=== PATIENT | male | born 1955 | race Caucasian/White ===

== ENCOUNTER 2025-03-14 08:05 | Outpatient (OUT) | payer MEDICARE, OTHER, SELFPAY ==
--- OUTSIDE RECORDS SUMMARY | 2025-03-13 23:59 | XMS_ITS | Continuity of Care Document ---
Author Organization [facility] Address [address] [address] Care Team Providers Care Hook Tender Name Role Phone FARIDA ROSALINO [place] Primary Care Physician [phone] Encounter FT_AMBFIN [id number] Date(s): 03/13/25 - 03/13/25 [facility] [address] [place] [address]- Encounter Diagnosis Right flank pain(Discharge Diagnosis) - 03/13/25 Family history of prostate cancer in father(Discharge Diagnosis) - 03/13/25 Screening PSA (prostate specific antigen)(Discharge Diagnosis) - 03/13/25 Kidney stone(Discharge Diagnosis) - 03/13/25 Discharge Disposition: Home (Routine DC) Attending Physician: Romie ORTIZ MD Encounter Type: Clinic Allergies, Adverse Reactions, Alerts No Known Medication Allergies Immunizations Given and Recorded Vaccine Date Status Refusal Reason pneumococcal 20-valent conjugate vaccine 10/03/24 Recorded influenza virus vaccine, inactivated 07/30/24 Eb rded influenza virus vaccine, inactivated 07/14/23 Eb rded influenza virus vaccine, inactivated 07/06/22 Eb rded influenza virus vaccine, inactivated 07/16/21 Eb rded influenza virus vaccine, inactivated 06/2020 Eb rded influenza virus vaccine, inactivated 06/03/20 Eb rded SARS-CoV-2 (COVID-19) [id number] 1 08/19/22 Recorded SARS-CoV-2 (COVID-19) mRNA-1273 vaccine 2 04/01/22 Recorded SARS-CoV-2 (COVID-19) mRNA-1273 vaccine 3 07/16/21 Recorded SARS-CoV-2 (COVID-19) mRNA-1273 vaccine 10/23/20 R ecorded SARS-CoV-2 (COVID-19) mRNA-1273 vaccine 09/25/20 R ecorded zoster vaccine live 03/01/17 Recorded yellow fever vaccine 09/02/04 Recorded typhoid vaccine, inactivated 09/02/04 Recorded hepatitis A-hepatitis B vaccine 09/02/04 Recorded tetanus-diphtheria toxoids 08/25/99 Recorded Td(adult) unspecified formulation 07/22/99 Recorde d Hep A, unspecified formulation 07/22/99 Recorded hepatitis B adult vaccine 06/06/97 Recorded hepatitis B adult vaccine 01/08/97 Recorded hepatitis B adult vaccine 11/27/96 Recorded 1Result Comment: 2025-03-05: [id number] 2Result Comment: 2025-03-05: [id number] 3Result Comment: 2025-03-05: TPV65 Medications latanoprost Opth 0.005% Leeanne Refill(s) 0 Start Date: 03/13/25 Status: Ordered Repeat number: 1 Problem List Condition Confirmation Course Effective Dates Status Health St atus Informant BMI 27.0-27.9,adult Confirmed Active Family history of prostate cancer in father Confirmed Active Glaucoma Confirmed Active Headache Confirmed Active Kidney stone Confirmed Active Microscopic hematuria Confirmed Active Screening PSA (prostate specific antigen) Confirmed Active Right flank pain Confirmed Active Tobacco use Confirmed Active patient Ureteral stone Confirmed Active Procedures Procedure Date Related Diagnosis Body Site Status Colonoscopy Completed Social History Social History Type Response Smoking Status Cigars or pipes but not daily within last 30 days;Never; Type: Cigars entered on: 03/13/25 Sex Male Sex Representation Male (finding) Hospital Discharge Instructions Patient Education 03/13/2025 12:05:57 Laser Therapy for Kidney Stones, Care After Laser Therapy for Kidney Stones, Care After After laser therapy for kidney stones, it is common to have: ??? Pain. ??? A burning feeling when you pee (urinate). ??? Small amounts of blood in your pee (urine). ??? A need to pee a lot. ??? Parts of the kidney stone in your pee. ??? Mild discomfort in your back when you pee. You may have this if you had a small mesh tube (stent) placed during the procedure. Follow these instructions at home: Medicines ??? Take ochr-utf-kvdkzhr and prescription medicines only as told by your health care provider. ??? If you were prescribed antibiotics, take them as told by your provider. Do not stop using the antibiotic even if you start to feel better. ??? Ask your provider if the medicine prescribed to you: ??? Requires you to avoid driving or using machinery. ??? Can cause constipation. You may need to take these actions to prevent or treat constipation: ??? Drink enough fluid to keep your pee pale yellow. ??? Take sftf-ppe-rcqqbzv or prescription medicines. ??? Eat foods that are high in fiber, such as beans, whole grains, and fresh fruits and vegetables. ??? Limit foods that are high in fat and processed sugars, such as fried or sweet foods. Activity ??? If you were given a sedative during the procedure, it can affect you for several hours. Do not drive or operate machinery until your provider says that it is safe. ??? Return to your normal activities as told by your provider. Ask your provider what activities are safe for you. General instructions ??? Your provider may recommend that you drink a lot of water for a few hours after your procedure.If you have heart or kidney disease, ask your provider how much you should drink. ??? You may be asked to strain your pee to collect any stone pieces that you pass. Your provider may have these pieces tested. ??? Do not take baths, swim, or use a hot tub until your provider approves. Ask your provider if you may take warm baths to soothe the burning. ??? Keep all follow-up visits. If you have a stent, you will need to go back to your provider to have it removed. Your provider may give you more instructions. Make sure you know what you can and cannot do. Contact a health care provider if: ??? You have pain or a burning feeling that lasts for more than 2 days. ??? You feel nauseous. ??? You vomit more and more often. ??? You have trouble peeing. ??? You have pain that gets worse or does not get better with medicine. ??? You have a fever or shaking chills. Get help right away if: ??? You cannot pee, even when your bladder feels full. ??? You faint. ??? You have chest pain, shortness of breath, or cough up blood. ??? You have: ??? Bright red blood or blood clots in your pee. ??? Severe pain or discomfort. ??? Pain in your abdomen. ??? Swelling in your legs. These symptoms may be an emergency. Get help right away. Call 911. ??? Do not wait to see if the symptoms will go away. ??? Do not drive yourself to the hospital. This information is not intended to replace advice given to you by your health care provider. Make sure you discuss any questions you have with your health care provider. Document Revised: 05/06/2023 Document Reviewed: 05/06/2023 Degreed Patient Education ?? 2023 [employer]. 03/13/2025 11:58:03 Laser Therapy for Kidney Stones Laser Therapy for Kidney Stones Laser therapy for kidney stones is a procedure to break up rock-like masses that form inside the kidneys (kidney stones). It is done using a device that beams a strong light (laser) on the kidney stones. This breaks the stones up into small pieces. These small pieces may leave your body when you pee (urinate) or may be taken out during the procedure. You may need laser therapy if you have kidney stones that are painful or that are stopping you frombeing able to pee. Tell a health care provider about: ??? Any allergies you have. ??? All medicines you are taking, including vitamins, herbs, eye drops, creams, and xyhb-adz-ejepmgs medicines. ??? Any problems you or family members have had with anesthesia. ??? Any bleeding problems you have. ??? Any surgeries you have had. ??? Any medical conditions you have. ??? Whether you are or may be . What are the risks? Your health care provider will talk with you about risks. These may include: ??? Infection. ??? Bleeding. ??? Allergic reactions to medicines. ??? Damage to: ??? The part of your body that drains pee (urine) from the bladder (urethra). ??? The bladder. ??? The tube that connects the bladder to the kidneys (ureter). ??? Urinary tract infection (UTI). ??? Urethral stricture. This is when the urethra is narrowed by scarring. ??? Trouble peeing. ??? Blockage of the kidney. This may be caused by a piece of kidney stone. What happens before the procedure? When to stop eating and drinking Follow instructions from your provider about what you may eat and drink. These may include: ??? 8 hours before the procedure ??? Stop eating most foods. Do not eat meat, fried foods, or fatty foods. ??? Eat only light foods, such as toast or crackers. ??? All liquids are okay except energy drinks and alcohol. ??? 6 hours before the procedure ??? Stop eating. ??? Drink only clear liquids, such as water, clear fruit juice, black coffee, plain tea, and sportsdrinks. ??? Do not drink energy drinks or alcohol. ??? 2 hours before the procedure ??? Stop drinking all liquids. ??? You may be allowed to take medicines with small sips of water. ??? If you do not follow your provider's instructions, your procedure may be delayed or canceled. Medicines ??? Ask your provider about: ??? Changing or stopping your regular medicines. These include any diabetes medicines or blood thinners you take. ??? Taking medicines such as aspirin and ibuprofen. These medicines can thin your blood. Do not take them unless your provider tells you to. ??? Taking izvq-nfo-xhcxdiy medicines, vitamins, herbs, and supplements. Tests ??? You may have a physical exam before the procedure. You may also have tests done. These may include: ??? Imaging tests. ??? Blood or pee tests. Surgery safety ??? Ask your provider: ??? How your surgery site will be marked. ??? What steps will be taken to help prevent infection. These steps may include: ??? Removing hair at the surgery site. ??? Washing skin with a soap that kills germs. ??? Taking antibiotics. General instructions ??? Do not use any products that contain nicotine or tobacco for at least 4 weeks before the procedure. These products include cigarettes, chewing tobacco, and vaping devices, such as e-cigarettes. If you need help quitting, ask your provider. ??? If you will be going home right after the procedure, plan to have a responsible adult: ??? Take you home from the hospital or clinic. You will not be allowed to drive. ??? Care for you for the time you are told. What happens during the procedure? An IV will be inserted into one of your veins. ??? You will be given: ??? A sedative. This helps you relax. ??? Anesthesia. This keeps you from feeling pain. It will make you fall asleep for surgery. ??? A tool with a camera on the end (ureteroscope) will be put into your urethra. It will be moved through your bladder to your kidney. It will send pictures to a screen in the operating room. This will show what parts of your kidney need to be treated. ??? A tube will be put through the ureteroscope. It will be moved into your kidney. ??? The laser device will be put into your kidney through the tube. The laser will be used to breakup the kidney stones. ??? A tool with a tiny wire basket may be put through the tube into your kidney. This can help remove the small pieces of the kidney stone. ??? A small mesh tube (stent) may be placed to allow your kidney to drain. ??? The tube and ureteroscope will be taken out at the end of the surgery. The procedure may vary among providers and hospitals. What happens after the procedure? Your blood pressure, heart rate, breathing rate, and blood oxygen level will be monitored untilyou leave the hospital or clinic. ??? If you had a stent placed, it may have a string that will be secured to your skin. This helps your provider remove the stent. ??? You may be given a strainer to collect any stone pieces that you pass in your pee. Your provider may have these tested. This information is not intended to replace advice given to you by your health care provider. Make sure you discuss any questions you have with your health care provider. Document Revised: 05/06/2023 Document Reviewed: 05/06/2023 Elsevier Patient Education ?? 2023 [employer]. Follow Up Care 02/07/2025 10:54:50 With:ANGEL OCHOA, Romie Patton, URL Address: [facility] [address] [place] [address]- [phone] When: Unknown Patient Care team information Care Team Personnel Name: ROSALINO IQBAL DO Position: Powerchart Outreach Office Staff Search Member Role: Primary Care Physician Address: [address] [place], [place] [address] Telecom: Care Team Related Persons Name: Mary JOHNSON Name: MARY JOHNSON Insurance Providers Guarantor name: Health Plan Information #: 1 Payer: NA Payer Identifier: [id number] Member Number: [id number] Group Number: [id number] Subscriber Identifier: [id number] Relationship to Subscriber: Self Coverage Type: MEDICARE Coverage Verification Date: 25 Telecom: NA Address: Health Plan Information #: 2 Payer: NA Payer Identifier: [id number] Member Number: [id number] Group Number: [id number] Subscriber Identifier: [id number] Relationship to Subscriber: Self Coverage Type: PRIVATE HEALTH INSURANCE Coverage Verification Date: 25 Telecom: Address:
--- NOTE | 2025-03-14 08:14 | ECG_ITS ---
[facility] Test Date: 2025-03-14 Pat Name: BERENICE JOHNSON Department: Room: - Gender: Male Technical Service Rep: : 1955 Requested By: GABY ORTIZ Order Number: [id number] Morena MD: ESTEPHANIE WEISS M.D. Measurements Intervals [place] Rate: 50 P: 34 VA: 166 QRS: 33 QRSD: 93 T: 40 QT: 415 QTc: 379 Interpretive Statements SINUS BRADYCARDIA Otherwise normal ECG No previous ECG available for comparison Electronically Signed On 03-14-2025 19:49:23 EDT by ESTEPHANIE WEISS M.D.
--- OUTSIDE RECORDS SUMMARY | 2025-03-14 08:14 | XMS_ITS | Clinical Summary ---
Author Organization [facility] Address [address] [place] [address] Care Team Providers Care County Agricultural Agent Name Role Phone Fuad Kelly MD Primary Care Provider [phone] Allergies No known active allergies Medications latanoprost (Xalatan) 0.005 % ophthalmic solution INSTILL 1 DROP IN EACH EYE AT BEDTIME 12/18/2024 Active Active Problems Problem Noted Date Diagnosed Date Primary open angle glaucoma (POAG) of both eyes, mild stage 02/13/2025 Epiretinal membrane (ERM) of left eye 02/13/2025 Dry eyes 02/13/2025 Blepharitis of upper and lower eyelids of both e yes 02/13/2025 Age-related nuclear cataract of both eyes 2024 Encounters Date Type Department Care Team Description 02/13/2025 11:15 AM EDT Office Visit [facility] [address] [place] [phone] Vic Sharp, Primary open angle glaucoma (POAG) of both eyes, mild stage (Primary Dx); Epiretinal membrane (ERM) of left eye; Age-related nuclear cataract of both eyes; Dry eyes; Blepharitis of upper and lower eyelids of both eyes, unspecified type 02/13/2025 Bamboo flowsheet [facility] [address] [place] [id number] Vic Sharp DO 02/13/2025 Travel 02/06/2025 Travel from Last 3 Months Family History Medical History Relation Name Comments Cancer Father Jluis Glaucoma Father Jluis Cataracts Mother Camilla Macular degeneration Mother Camilla Glaucoma Sister Rosalina Relation Name Status Comments Father Jluis Alive Mother Camilla Alive Sister Rosalina Alive Social History Tobacco Use Types Packs/Day Years Used Date Smoking Tobacco: Never Smokeless Tobacco: Never Tobacco Cessation:Counseling Given: Not Answered Comments:Occasionally a cigar. No inhale Sex and Gender Information Value Date Recorded Sex Assigned at Not on file Legal Sex Male 11:09 PM EDT Gender Identity Not on file Sexual Orientation Not on file Last Filed Vital Signs Vital Sign Reading Time Taken Comments Blood Pressure - - Pulse - - Temperature - - Respiratory Rate - - Oxygen Saturation - - Inhaled Oxygen Concentration - - Weight 86.2 kg (190 lb) 03/13/2021 12:00 PM EDT Height 185.4 cm (6' 1 ) 03/13/2021 12:00 PM EDT Body Mass Index 25.07 03/13/2021 12:00 PM EDT Plan of Treatment Upcoming Encounters Date Type Department Care Team (Late st Contact Info) Description 08/20/2025 8:15 AM EST Office Visit [facility] [address] [place] [phone] Vic Sharp, [address] [place] [address] Health Maintenance Due Date Last Done Comments CT Colonography 1955 Colonoscopy 1955 Colorectal Cancer Screening 1955 FIT-DNA 1955 FIT 1954 FOBT 1955 Sigmoidoscopy 1955 Influenza Vaccine Completed 07/30/2024, , 07/06/2022, Additional history exists Pneumococcal Vaccine: 65+ Years Completed Insurance MEDICARE Care Teams County Agricultural Agent Relationship Specialty Start Date End Date Fuad Kelly MD [address] [place] [address] [address] PCP - General Family Medicine 02/13/25
--- NOTE | 2025-03-14 08:46 | PM.PRESUREVA ---
History of Present Illness History of Present Illness Chief complaint: right kidney stone Narrative: Patient presents for presurgical testing. Please see HPI from Dr. Ortiz dated March 13, 2025. Review of Systems ROS Narrative Please see ROS from Dr. Ortiz dated March 13, 2025. [facility] Medical History (Updated 03/14/25 @ 08:43 by Soledad Mccoy NP) Elevated blood pressure reading without diagnosis of hypertension ?R03.0 - Elevated blood-pressure reading, without diagnosis of hypertension (ICD-10) DDD (degenerative disc disease) Migraine ?G43.909 - Migraine, unspecified, not intractable, without status migrainosus (ICD-10) Headache ?R51.9 - Headache, unspecified (ICD-10) Hematuria ?R31.9 - Hematuria, unspecified (ICD-10) Ureteral stone ?N20.1 - Calculus of ureter (ICD-10) Flank pain ?R10.9 - Unspecified abdominal pain (ICD-10) Glaucoma ?H40.9 - Unspecified glaucoma (ICD-10) Kidney stones ?N20.0 - Calculus of kidney (ICD-10) Surgical History (Updated 03/14/25 @ 08:43 by Soledad Mccoy NP) Status post ORIF of fracture of ankle ?Z98.890 - Other specified postprocedural states (ICD-10) ?Z87.81 - Personal history of (healed) traumatic fracture (ICD-10) History of colonoscopy ?Z98.890 - Other specified postprocedural states (ICD-10) Family History (Updated 03/14/25 @ 08:30 by Soledad Mccoy NP) Other Family history of hypertension Family history of prostate cancer Social History (Updated 03/14/25 @ 08:25 by Soledad Mccoy NP) Within the past year, how often did you have a drink containing alcohol: monthly or less Smoking status: Never smoker Non-prescribed substance use: denies use Previous occupational history: Retired Highest level of school completed/degree received: Professional degree (MD, BOBBY, DVM, DDS) Meds Home Medications and Allergies Home Medications ?Medication ?Instructions ?Recorded ?Confirmed ?Type glucosamine-chondroitin 250 mg-200 2 tab PO DAILY 03/14/25 03/14/25 History mg tablet latanoprost 0.005 % eye drops 1 drp ophthalmic (eye) QPM 06/26/25 06/26/25 History multivitamin (Daily Multi-Vitamin 1 tab PO DAILY 03/14/25 03/14/25 History tablet) Allergies Allergy/AdvReac Type Severity Reaction Status Date / Time No Known Drug Allergies Allergy Verified 03/14/25 08:23 Exam Narrative Exam Narrative: Constitutional: Awake, alert, comfortable, well-appearing, nontoxic, interactive, vital signs as charted Head: Normocephalic, atraumatic Neck: Supple, normal appearance, normal range of motion, no meningeal signs, no lymphadenopathy Respiratory: No respiratory distress, breath sounds clear Cardiovascular: Regular rate and rhythm, strong and regular heart tones Abdomen: Nontender, normal bowel sounds, soft, no CVA tenderness Musculoskeletal: Normal gait, no swelling or edema Skin: No rashes or induration, no lesions, only visible skin inspected Neuro: No neurological deficits, normal sensation Psychiatric: Oriented ?3, normal affect Assessment and Plan Assessment and Plan (1) Flank pain: (2) Kidney stones: (3) Hematuria: Plan Right ESWL scheduled with Dr. Ortiz March 19, 2025.
[2025-03-14 09:08] LABS: Basophils Percent Auto 0.4 % (0.2-2.0); Eosinophils Absolute Auto 0.1 10^3/uL (0.0-0.7); Eosinophils Percent Auto 1.5 % (0.9-7.0); Hematocrit 42.7 % (42.0-54.0); Immature Granulocytes Abs Auto 0.01 10^3/uL (0.00-0.03); Immature Granulocytes Pct Auto 0.2 % (0.0-0.5); Lymphocytes Absolute Auto 1.1 10^3/uL (1.2-3.8); Lymphocytes Percent Auto 23.7 % (20.5-60.0); Mean Corpuscular HGB Conc 35.1 g/dL (29.9-35.2); Mean Corpuscular Hemoglobin 31.3 pg (25.9-34.0); Mean Corpuscular Volume 89.1 fL (80.0-94.0); Mean Platelet Volume 10.2 fL (9.5-13.5); Monocytes Absolute Auto 0.5 10^3/uL (0.3-0.8); Monocytes Percent Auto 9.9 % (1.7-12.0); Neutrophils Absolute Auto 3.1 10^3/uL (1.4-6.5); Neutrophils Percent Auto 64.3 % (43.0-75.0); Platelet Count 203 10^3/uL (150-450); Red Blood Count 4.79 10^6/uL (4.70-6.10); Red Cell Distribution Width 12.9 % (11.0-15.0); White Blood Count 4.8 10^3/uL (4.0-11.0)
[2025-03-14 09:28] LABS: INR 0.99; Partial Thromboplastin Time 26.3 sec (22.3-36.2); Prothrombin Time 10.5 sec (9.0-11.6)
[2025-03-14 10:23] LABS: Anion Gap 13.1; BUN Creatinine Ratio 16.9; Calcium 9.4 mg/dL (8.5-10.1); Chloride 105 mmol/L (98-107); Estimated GFR (African America >60 (>=60 mL/min/1.73m^2); Estimated GFR (Non-African Ame >60 (>=60 mL/min/1.73m^2); Glucose 107 mg/dL (74-106); Potassium 4.1 mmol/L (3.5-5.1); Sodium 139 mmol/L (136-145)
== END 2025-03-14 08:06 | disposition home or self-care (01) ==
PROVIDERS: PCP Family Medicine; Visit Provider Urology
DX: Z01.810 Encounter for preprocedural cardiovascular examination (principal); Z01.812 Encounter for preprocedural laboratory examination; Z01.818 Encounter for other preprocedural examination; N20.0 Calculus of kidney; R31.9 Hematuria, unspecified
CPT/HCPCS: 80048; 85025; 85610; 85730; 93005; G0463

== ENCOUNTER 2025-03-19 10:38 | Day surgery (SDC) | payer MEDICARE, OTHER, SELFPAY ==
[2025-03-14 08:39] VITALS: BP 154/89; PULSE 55; TEMP 36.3; O2SAT 97; BMI 28.9
[2025-03-19] VITALS (8 sets, daily range): BP systolic 129–161; BP diastolic 68–86; PULSE 49–59; TEMP 36.2–36.3; O2SAT 92–100; BMI 29.0
--- NOTE | 2025-03-19 10:30 | XR_ITS ---
The [address] [address] Patient Name: BERENICE JOHNSON MRN: [id number] date: 1955 Sex: M Assigned Patient Location: [facility] Current Patient Location: [facility] Accession/Order Number: [id number] Exam Date: 03/19/2025 11:07 Report Date: 03/19/2025 11:08 At the request of: GABY ORTIZ MD Procedure: XR abdomen 1V KUB: COMPARISON: 04/29/2020 CLINICAL DATA: Preop planning. History of kidney stone. Supine view of the abdomen and pelvis was obtained. There is air and mild stool within the colon. There is no dilated small bowel. The kidneys are partially obscured. There is a 6 mm calcification at the midpole area of the right kidney suggesting a stone. No other radiopaque calculi are present. No soft tissue masses are seen. There are mild degenerative changes at the spine. A similar sclerotic focus is visualized the left iliac bone above the acetabulum. XR/XR abdomen 1V IMPRESSION: RIGHT NEPHROLITHIASIS. Impression dictated by: Renetta Avendano M.D. 03/19/2025 11:08 AM Dictation Location: [place] [address] Electronically authenticated by: [id number] Y Date: 03/19/2025 11:08
--- OUTSIDE RECORDS SUMMARY | 2025-03-19 10:40 | XMS_ITS | Clinical Summary ---
Author Organization [facility] Address [address] [place] [address] Care Team Providers Care Window Framer Name Role Phone Fuad Kelly MD Primary Care Provider [phone] Allergies No known active allergies Medications latanoprost [...] [facility] [address] [place] [phone] Vic Sharp, Primary open angle glaucoma (POAG) of both eyes, mild stage (Primary Dx); Epiretinal membrane (ERM) of left eye; Age-related nuclear cataract of both eyes; Dry eyes; Blepharitis of upper and lower eyelids of both eyes, unspecified type 02/13/2025 Bamboo flowsheet [facility] [address] [place] [phone] Vic Sharp DO 02/13/2025 Travel 02/06/2025 Travel [...] [facility] [address] [place] [phone] Vic Sharp, [address] [place] [address] Health Maintenance Due Date Last Done Comments CT Colonography 1955 Colonoscopy 1955 Colorectal Cancer Screening 1955 FIT-DNA 1954 FIT 1954 FOBT 1954 Sigmoidoscopy 1955 Influenza Vaccine Completed 07/30/2024, , 07/06/2022, Additional history exists Pneumococcal Vaccine: 65+ Years Completed Insurance MEDICARE Care Teams Window Framer Relationship Specialty Start Date End Date Fuad Kelly MD [address] [place] [address] [address] PCP - General Family Medicine 02/13/25
[2025-03-19] MEDS: CEFAZOLIN SODIUM 2 GM/50 ML D5W PREMIX IV (13:24)
--- NOTE | 2025-03-19 14:03 | P.URON_ITS ---
Urology Surgery Operative Note Operative Note Procedure Date: 03/19/25 Time Out Performed: yes Pre-op Diagnosis: Right nephrolithiasis Post-op Diagnosis: same as pre-op Procedures performed: 1. Right ESWL. Anesthesia: General-LMA Primary Surgeon: Romie Ortiz Complications: None Estimated blood loss (mL): 0 Findings: Nonobstructing right renal calculus Specimens: None Drains: None Indications for Procedures: This gentleman has recurrent nephrolithiasis. Now he has a 5 mm stone that is nonobstructing in his right kidney. He now presents for right ESWL. He has signed an informed consent after risks were explained. Some of these risks include bleeding, infection, anesthesia and perinephric hematoma to name a few Detailed description of Procedure: The patient was brought to the Operating Room and placed on Siemens electromagnetic lithotripsy treatment table in the supine position. SCDs were placed on their lower extremities and turned on and functioning during the entire case. Timeout was done by all parties in the room. We all agreed upon the patient's identification and the planned procedures for this patient. General Anesthesia was then administered via LMA. Treatment head was then brought to the patient's correct side. While using flourscopy the stone was identified and lined up into the crosshairs. We then began applying shocks. I started at power level 2.0 and increased to a maximum power level of 3.5. Intermittent fluoroscopy revealed that the stone fairly quickly began to fragment. It cracked in half by 800 shocks. We continued applying shocks and evaluating the situation with live x-ray. We had steady fragmentation. We applied a total of 3000 shocks. Our last fluoroscopic image revealed no evidence of any formed stone remaining. The procedure was then terminated. He was then transferred to a [facility] bed and wheeled to the PACU in stable [facility].
--- NOTE | 2025-03-19 14:34 | PC.NURSE ---
Bruising right flank area noted
--- NOTE | 2025-03-19 15:16 | PC.NURSE ---
Up to bathroom and voids light red urine without clots ; urine strained and negative for calculi
== END 2025-03-19 15:18 | disposition home or self-care (01) ==
LOC: SURGOUT 10:39
PROVIDERS: PCP Family Medicine; Visit Provider Urology
PROC: (CPT 50590; principal; 2025-03-19 11:50)
DX: N20.0 Calculus of kidney (principal); R31.9 Hematuria, unspecified; Z80.42 Family history of malignant neoplasm of prostate
CPT/HCPCS: 50590; 36415; 74018; J0690; J1100; J1885; J2250; J2371; J2405; J2704; J3010